=== PATIENT | male | born 1955 | race Caucasian/White ===

== ENCOUNTER 2017-08-11 18:59 | Inpatient (IN) | END 2017-08-15 18:52 | disposition home or self-care (01) | DRG 351 ==

== ENCOUNTER → 2019-02-23 | Emergency (ER) | payer OTHER ==
[~2019-02-23] VITALS: Wt 67.0 kg
[~2019-02-23] MED LIST: ERYT1OIN6 LEFT EYE; LEVO500T10 PO
[2019-02-23 12:03] VITALS: BP 150/79; PULSE 88; RESP 18
--- NOTE | 2019-02-23 12:42 | ERD ---
ER Documentation Chief Complaint Chief Complaint LEFT EYE STY HPI 63-year-old male presents with a lesion on his left lower eyelid for the last 3 days. He denies any visual changes, significant pain. He denies any inciting events. Denies any contact lens use. ROS All systems reviewed and are negative except as per history of present illness. Medications Home Meds Active Scripts Erythromycin Base (Erythromycin) 1 Gm Oint...g., 1 APPLIC LEFT EYE QID for 7 Days Prov:NEETA DAN MD 02/23/19 Levofloxacin* (Levofloxacin*) 500 Mg Tablet, 500 MG PO DAILY for 7 Days, TAB Prov:JENNIFER GRAMAJO 08/15/17 Allergies Allergies: Coded Allergies: No Known Allergy (Unverified , 08/11/17) PMhx/Soc History of Surgery: Yes (today R ing hernia repaire) Anesthesia Reaction: No Hx Neurological Disorder: No Hx Respiratory Disorders: No Hx Cardiac Disorders: No Hx Psychiatric Problems: No Hx Miscellaneous Medical Probl: No Hx Alcohol Use: No Hx Substance Use: No Hx Tobacco Use: No FmHx Family History: No diabetes, No coronary disease, No other Physical Exam Vitals Vital Signs Date Temp Pulse Resp B/P (MAP) Pulse Ox O2 O2 Flow FiO2 Time Delivery Rate 02/23/19 98.1 88 18 150/79 99 12:03 (102) Physical Exam Const: No acute distress Head: Atraumatic Eyes: Normal Conjunctiva and left lower lid external stye with pointing pustule. No induration or orbital swelling. No proptosis or abnormal eye mov ements. Eyes are PERRL and extraocular movements intact. ENT: Normal External Ears, Nose and Mouth. Neck: Full range of motion. No meningismus. Resp: Clear to auscultation bilaterally Cardio: Regular rate and rhythm, no murmurs Abd: Soft, non tender, non distended. Normal bowel sounds Skin: No petechiae or rashes Back: No midline or flank tenderness Ext: No cyanosis, or edema Neur: Awake and alert Psych: Normal Mood and Affect Procedures/MDM Patient presents with signs and symptoms of left lower eyelid eyelid hordeolum without signs of orbital cellulitis, significant facial cellulitis, visual changes, additional complications. Procedure note-left lower eyelid was prepped with alcohol and topical lidocaine was applied. An 18-gauge needle was used to unroof the pustule. A small amount of pus was expressed. Patient tolerated procedure well and hemostasis was pain with pressure. Topical antibiotic cream was applied. Patient will be discharged home with recommendation for warm compresses, erythromycin ointment, return precautions for worsening redness, fevers, visual changes, new worsening symptoms. The patient was stable with no new complaints during the ER course. Clinically, there is no current evidence to suggest meningitis, sepsis, acute abdomen, pneumonia, stroke, acute coronary syndrome, pulmonary embolism, aortic dissection or any other emergent condition appearing to require further evaluation or hospitalization. Patient counseled regarding my diagnostic impression and care plan. Prior to discharge all questions answered. Pt agrees with treatment plan and understands strict return pr ecautions. Pt is instructed to follow up with primary care provider within 24-48 hours. Precautionary instructions provided including instructions to return to the ER if not improving or for any worsening or changing symptoms or concerns. Disclaimer: Inadvertent spelling and grammatical errors are likely due to EHR/dictation software use and do not reflect on the overall quality of patient care. Also, please note that the electronic time recorded on this note does not necessarily reflect the actual time of the patient encounter. Departure Diagnosis: Primary Impression: Stye external Laterality: left Eyelid: lower Qualified Codes: H00.015 - Hordeolum externum left lower eyelid Condition: Stable Patient Instructions: y Additional Instructions: Apply warm compresses at home. Recheck for worsening redness, fevers, visual changes, new or worsening symptoms. NEETA DAN MD Feb 23, 2019 12:42
== END | disposition home or self-care (01) ==
LOC: FTE 11:56
DX: H00.015 Hordeolum externum left lower eyelid (principal)
CPT/HCPCS: 99283